=== PATIENT | female | born 1960 | race Caucasian/White ===

== ENCOUNTER → 2017-09-06 06:55 | Outpatient (CLI) | payer OTHER, SELFPAY ==
--- NOTE | 2017-09-06 07:04 | BI_ITS ---
MAMMOGRAPHY - BILATERAL SCREENING 3-D MADIHA SYNTHESIS REASON FOR EXAM: Female, 57 years old. Bilateral Screening 3-D tomosynthesis PERTINENT HISTORY: No significant family history. TECHNIQUE: 2-D mammograms and 3-D Madiha synthesis of the breast (s) were performed. CAD was performed. COMPARISON: August 14, 2016. FINDINGS: The breast composition is heterogeneously dense that can obscure small breast masses. No dense spiculated masses or suspicious microcalcifications are identified. No architectural distortion is identified. There is no skin thickening or retraction. There has been no significant change since the prior study. BI/SCREENING MAMM (CAD), BILAT IMPRESSION: No mammographic signs of malignancy. Routine yearly mammograms recommended. ASSESSMENT CATEGORY: BIRADS Category 1: Negative. A letter regarding these results will be sent to the patient by the facility within 30 days. FOLLOW UP RECOMMENDATION: Yearly follow up mammogram recommended. (A) Approximately 10% of breast cancers are not detected by mammography. A normal mammogram should not delay biopsy of a clinically suspicious abnormality. Electronically Signed: Earnest Sandoval MD at 8:16 EDT , Service support ,
== END ==
PROVIDERS: Family Provider Family Medicine; PCP Family Medicine; Visit Provider Family Medicine
DX: Z12.31 Encounter for screening mammogram for malignant neoplasm of breast (principal)
CPT/HCPCS: 77063; 77067

== ENCOUNTER → 2018-07-23 07:04 | Outpatient (CLI) | payer OTHER, SELFPAY ==
--- NOTE | 2018-07-23 09:26 | RAD_ITS ---
STUDY: X-RAY - LEFT HAND REASON FOR EXAM: Female, 58 years old. Left hand pain, mostly at the first metacarpophalangeal joint TECHNIQUE: 3 view(s) of the hand. COMPARISON: None. FINDINGS: Normal radiocarpal articulation. Normal distal radioulnar joint. Normal visualized carpal bones. Normal carpal articulations There is degenerative arthrosis of the carpometacarpal (CMC) articulation of the thumb. Normal second through fifth carpometacarpal joints. Normal metacarpi. Normal metacarpophalangeal joint of the thumb. Normal interphalangeal joint of the thumb. Normal proximal and distal phalanges of the thumb. Normal metacarpophalangeal joints of the second through fifth fingers. There is diffuse articular joint space narrowing of the proximal and distal interphalangeal joints of the second through fifth fingers, but without erosive changes or periarticular soft tissue swelling. Normal phalanges of the second through fifth fingers. The soft tissue structures are unremarkable. RAD/Hand Min 3 Views IMPRESSION: Mild degenerative changes at the PIP and DIP joints. No significant degenerative change at the first metacarpophalangeal joint. Mild degenerative change at the first carpometacarpal joint. No acute fracture. Electronically Signed: Rogelio Marti DO at 9:23 EDT Tel , Service support ,
[2018-07-23 10:12] LABS: Vitamin D,25 Hydroxy 23.3 ng/mL (29.95-100.01)
[2018-07-23 10:25] LABS: Anion Gap 7 (5-15); BUN 13 mg/dL (7-18); BUN/Creat Ratio 18.1 RATIO (10-20); Calcium,Total 8.5 mg/dL (8.5-10.1); Chloride 106 mmol/L (98-107); Cholesterol 171 mg/dL (200); Creatinine, Serum 0.72 mg/dL (0.55-1.02); EST Glomerular Filtration Rate 88 mL/min (>60); Est Glom Filt Rate - Afr Amer 107 mL/min (>60); Glucose 89 mg/dL (74-106); High Density Lipoprotein 56 mg/dL; Potassium 3.9 mmol/L (3.5-5.1); Sodium Level 144 mmol/L (136-145); Triglycerides 69 mg/dL; Very Low Density Lipoprotein 14 mg/dL (5-40)
== END ==
PROVIDERS: Family Provider Family Medicine; PCP Family Medicine; Referring Provider Family Medicine; Visit Provider Family Medicine
DX: M79.642 Pain in left hand (principal); E55.9 Vitamin D deficiency, unspecified; E03.9 Hypothyroidism, unspecified; Z13.220 Encounter for screening for lipoid disorders; Z13.1 Encounter for screening for diabetes mellitus
CPT/HCPCS: 36415; 73130; 80048; 80061; 82306; 84439; 84443

== ENCOUNTER 2018-09-04 07:05 | Outpatient (RCR) | payer OTHER, SELFPAY ==
[2018-09-04 10:51] LABS: Vitamin D,25 Hydroxy 34.5 ng/mL (29.95-100.01)
[2018-09-04 10:55] LABS: T4 Free Direct 1.28 ng/dL (0.76-1.46)
== END 2018-09-10 16:00 | disposition home or self-care (01) ==
LOC: MTLAB 07:05
PROVIDERS: Family Provider Family Medicine; PCP Family Medicine; Referring Provider Family Medicine; Visit Provider Family Medicine
DX: E03.9 Hypothyroidism, unspecified (principal); E55.9 Vitamin D deficiency, unspecified
CPT/HCPCS: 36415; 82306; 84439; 84443

== ENCOUNTER → 2018-09-04 15:42 | Outpatient (CLI) | payer OTHER, SELFPAY ==
--- NOTE | 2018-09-04 15:45 | RAD_ITS ---
STUDY: X-RAY - LEFT SHOULDER REASON FOR EXAM: Female, 58 years old. Posttraumatic pain TECHNIQUE: 4 view(s) of the shoulder. COMPARISON: None. FINDINGS: Narrowed glenohumeral articulation. Normal acromioclavicular joint. Normal acromion. Normal humeral head and visualized proximal humerus. The soft tissue structures are unremarkable. Normal visualized pulmonary apex. RAD/Shoulder min 2 Views IMPRESSION: Mild degenerative changes. No evidence for acute fracture Electronically Signed: Victorino Almanzar MD at 21:52 EDT , Service support ,
== END ==
PROVIDERS: Family Provider Family Medicine; PCP Family Medicine; Referring Provider Nurse Practitioner Family; Visit Provider Nurse Practitioner Family
DX: S49.92XA Unspecified injury of left shoulder and upper arm, initial encounter (principal)
CPT/HCPCS: 73030

== ENCOUNTER 2018-10-14 08:00 | Outpatient (RCR) | payer OTHER, SELFPAY ==
--- NOTE | 2018-09-16 07:45 | HP.PTEVAL_ITS ---
Patient's Visit Information CHRISTI VENTURA is a 58 year old F referred to Physical Therapy by LEORA Ruiz with a diagnosis of L shoulder pain. Date of Evaluation: 09/16/18 Physical Therapist: Jagjit Young DPT, OCS, CSCS - Visit Plan Frequency: 1x/Week Duration: 4-6 Weeks Plan: weekly to start possibly going to 3x /week if no improvement for. progression of home stretching , ROM and strength for capsule/RC/posture. Mobs if needed. Next week capsule stretches - Subjective Findings: L shoulder is messed up. Had frozen shoulder L 10 years ago. Recently feels like it was binding up, but then fell off the porch step in the dark missing a step and fell on L shoulder about a month ago. Prior to that sweeping motion at work was noticably catchy. Since the fall was sore for a week and then started to feel better but still a little tight in L shoulder. Reaching up is pulling underneath armpit. Reaching into the backseat of the car can be painful. Some days better than others. Sleep is OK for the most part. Basic ADLs are annoying but can do most of them. Can get dressed but L shoulder stiffness is ntoiceable and pain. 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 More so with quick reaching. Hobbies: not alot. - Pain L shoulder Pain Intensity (Out of 10): 0 Pain Intensity Range: 0, 7 Comment: 7 with reaching wrong. Tight at rest. - Objective AROM L shoulder flexion 130, abd 125, ext rotation 50 and IR PSIS, pain at end range of all of these. PROM numbers approx the same limited by pain and stiff firm endfeel in all motions. scapular ROM good B. R shoulder AROM WNL and painfree. C/S AROM WNL and painfree. Elbow and hand/ wrist ROM WNL and painfree. STrengthR shoulder 4+/5, L shoulder 4/5 and painful with flexion adn abd and IR, no pain ext rotation. Tender to palpation subscap tenon and supra tendon. - ext rotation lag, - drop arm, + HK + neer impingement on L. Posture is forward head and scap B. reflexes 2/3 B biceps and triceps. - Goals Goal 1:: Full aROM L shoulder without pain, symmetrical with R. Goal Time Frame: 4-6 Weeks Goal 2:: Patient feel back to 90% activities without shoulder limitations. Goal Time Frame: 4-6 Weeks Goal 3:: I appropr HEP to limit future problems Goal Time Frame: 4-6 Weeks Goal 4:: Less than 20% disability on quickdash Goal Time Frame: 4-6 Weeks - Rehabilitation Potential Physical Therapy Diagnosis: L shoulder pain likely adhesive capsulitis Rehabilitation Potential: Fair - Anticipated Interventions Patient/Client Instruction: Educate patient on: Condition, Plan of Care For the Purpose of:: To decrease pain, To increase ROM, To increase tolerance to activity/condition/position Therapeutic Exercise to Include: Strength training, Postural training, Flexibilty training, Passive ROM, Active ROM For the Purpose of:: To decrease pain, To increase ROM, To improve muscle performance and motor function, To increase tolerance to activity/condition/position, To improve ability of physical actions for home/community/work/leisure Manual Therapy Techniques to Include: Mobilization, Soft tissue mobilization For the Purpose of:: To increase ROM Thank you for the opportunity to evaluate your patient. For Medicare and Medicare HMO plans, please review the plan of care and approve it. It will need to be FAXED BACK to us at [phone] for Medicare purposes. For Medicare only, by signing this I certify the plan of care. Please let me know if there are questions or concerns regarding this plan of care. Physician Signature: Date:
--- NOTE | 2018-12-24 12:37 | HP.PTDCSUM ---
HP - PT D/C Summary It has been my pleasure to treat CHRISTI VENTURA under orders from LEORA Ruiz, for the diagnosis of L shoulder pain for a total of 4 visit(s). Discharge Date: 10/14/18 Please see the following information for a summary of their discharge status. - Subjective Subjective: Bands have helped a lot. Still has tightness in posterior upper arm. Pain is not present. activities are pretty normal. Sleep is OK. Only tightness is when stretching. - Pain L shoulder Pain Intensity (Out of 10): 0 - Overall Improvement % Improvement: 90 - Objective Objective/Function: 150 flexion L 155 R, abd 148 L and 155R. external rotationa nd IR symmetrical. No pain, strength at 4+/5 and symmetrical L to R. Doing well overall. - Goals Goal 1:: Full aROM L shoulder without pain, symmetrical with R. Goal Progress: Goal Met Goal 2:: Patient feel back to 90% activities without shoulder limitations. Goal Progress: Goal Met Goal 3:: I appropr HEP to limit future problems Goal Progress: Goal Met Goal 4:: Less than 20% disability on quickdash Goal Progress: Goal Met - Plan Plan: D/C , Pt to continue HEP and let doctor know if doesn't get to comfortable place with ROM. - D/C Information Discharge Comments: Doing well without pain o0r dysfunction. Slight tightness at top of ROM but doing well. Will continue HEP and let doctor know if condition worsens. If there are questions or concerns regarding this patient's physical therapy, please feel free to call me at [phone]. Thank you for the referral of this patient. Sincerely, Jagjit Young, DPT, OCS, CSCS
== END 2018-10-14 19:00 | disposition home or self-care (01) ==
LOC: PT 08:00
PROVIDERS: Family Provider Family Medicine; PCP Family Medicine; Referring Provider Nurse Practitioner Family; Visit Provider Nurse Practitioner Family
DX: M25.512 Pain in left shoulder (principal); M25.612 Stiffness of left shoulder, not elsewhere classified
CPT/HCPCS: 97110; 97161; 97530

== ENCOUNTER 2019-02-18 07:06 | Outpatient (RCR) | payer OTHER, SELFPAY ==
[2017-05-19 11:00] VITALS: BMI 23.9
[2019-02-18 10:35] LABS: Thyroid Stim Hormone (TSH) 0.13 uIU/mL (0.358-3.74)
== END 2019-02-18 18:00 | disposition home or self-care (01) ==
LOC: MTLAB 07:06
PROVIDERS: Family Provider Family Medicine; PCP Family Medicine; Referring Provider Family Medicine; Visit Provider Family Medicine
DX: E03.9 Hypothyroidism, unspecified (principal)
CPT/HCPCS: 36415; 84443

== ENCOUNTER → 2019-04-01 12:00 | Outpatient (CLI) | payer OTHER, SELFPAY ==
[2017-05-19 11:00] VITALS: BMI 23.9
[2019-04-01 14:12] LABS: T4 Free Direct 1.23 ng/dL (0.76-1.46); T4 Total, Thyroxin 12.3 ug/dL (4.8-13.9); Thyroid Stim Hormone (TSH) 0.21 uIU/mL (0.358-3.74)
== END ==
PROVIDERS: Family Provider Family Medicine; PCP Family Medicine; Referring Provider Family Medicine; Visit Provider Family Medicine
DX: E03.9 Hypothyroidism, unspecified (principal)
CPT/HCPCS: 36415; 84436; 84439; 84443

== ENCOUNTER 2019-04-21 17:00 | Outpatient (RCR) | payer OTHER, SELFPAY ==
[2017-05-19 11:00] VITALS: BMI 23.9
--- NOTE | 2019-04-15 09:07 | HP.PTEVAL ---
Patient's Visit Information CHRISTI VENTURA is a 59 year old F referred to Physical Therapy by Guero Farias MD with a diagnosis of Labbrynthitis. Date of Evaluation: 04/15/19 Physical Therapist: ARIK Farias - Visit Plan Frequency: 1x/Week Duration: 6 Weeks Plan: Re-test R Hallpike. Test CATSIB. Give vertical VOR X 1 exercises for home ( maybe be able to start in standing versus sitting). - Subjective Findings: Pt reports that one Sunday she woke up and went to get out of bed she got hit with a really hard dizzy spell to the point she had to lay back down. She took 3 days off of work cause she was so sick. If she got up slowly and in stages. She went to the Dr and they did not think it was an ear infection... and gave meclazine and a week later she felt like her ear was filling upp and they said that it was red and swollen and got a zpack for that and an anti-inflammatory that was a steroid. She started feeling a little bit better. She is back to work but can not turn head quick and has trouble with goes to look up under a vehichle she will get dizzy. She went to turn sideways to look under a car and it hit her really bad. She has tried to adapt. The episodes that she has now are not at intense unless she does something super quick. SHe rolls over in bed in stages. SHe feels the fluid moving in her ears with rolling over. The room will spin with these episodes would last about a minute and now they they are like 10 seconds. She has more symptoms rolling from L to R. She is not dizzy in sitting unless she scrolls too fast on the computer but that happened before this last episode. 10-15 years ago she started having some vertigo issues with heights. She has had some spells of ringing in her ears that don;t last long. If she looks up she for awhile (10-40 seconds).... she starts to feel dizzy and her vision starts to get out of focus. - Objective Smooth pursuit horizontal... no issues. Smooth pursuit vertical.... has a hard time staying focused especially when toward the flexion or eyes moving towards the ground. VOR X 1 vertical...slight feeling of being off. VOR X 1 horizontal no symptoms. + Hallpike to the R for torsional nystagmus that lasted approx 25 seconds... treated with R EPLY. FGA 30 - Balance Scores Functional Gait Assessment Score: 29 % Disability: 3.3400 - Goals Goal 1:: I HEP Goal Time Frame: 4-6 Weeks Goal 2:: Be able to look up under a car without getting dizzy, Goal Time Frame: 4-6 Weeks Goal 3:: Be able to complete vertical VOR X 1 60 seconds in standing without getting dizzy. Goal Time Frame: 4-6 Weeks Goal 4:: -R Hallpike for dizziness and nystagmus Goal Time Frame: 4-6 Weeks - Rehabilitation Potential Rehabilitation Potential: Good - Anticipated Interventions Patient/Client Instruction: Educate patient on: Condition, Plan of Care For the Purpose of:: To improve nutrient delivery to tissue, To improve muscle performance and motor function, To improve ability to perform ADL's, To increase tolerance to activity/condition/position, To improve performance and independence with ADL's, To improve ability of physical actions for home/community/work/leisure, To improve balance Therapeutic Exercise to Include: Strength training, Balance training, Gait and locomotor training For the Purpose of:: To improve muscle performance and motor function, To improve ability to perform ADL's, To increase tolerance to activity/condition/position, To improve performance and independence with ADL's, To decrease level of supervision to perform tasks, To improve ability of physical actions for home/community/work/leisure Manual Therapy Techniques to Include: Mobilization For the Purpose of:: To improve ability to perform ADL's Thank you for the opportunity to evaluate your patient. For Medicare and Medicare HMO plans, please review the plan of care and approve it. It will need to be FAXED BACK to us at [phone] for Medicare purposes. For Medicare only, by signing this I certify the plan of care. Please let me know if there are questions or concerns regarding this plan of care. Physician Signature: Date:
--- NOTE | 2019-04-21 17:24 | HP.PTREVAL ---
Guero Farias MD, It has been my pleasure to treat CHRISTI VENTURA over the last 2 visits for Labbrynthitis. Please see the progress note below for an update on the physical therapy plan of care! Subjective: Pt reports that she is 98% better. She reports that she is now able to look up under cars without getting dizzy. She is not as guarded either Objective/Function: Re-tested R Hallpike and was negative for dizziness and for nystagmus. Smooth pursuit horizontal X 60 seconds was normal. Smooth pursuit vertical X 30 seconds (pt had some decreased ablity to follow the object when looking down) confirmed by subjective hard time sometimes scrolling on IPAD. VOR X 1 vetical and horizontal pt had no dizziness ( on little issue with vertical and R eye jumoing off course) Plan Plan: HOld Chart X 2 wekes. Gave vertical smooth pursuits and walking with head turns for home. Pt to call in in 2 weeks to report progress and will probably be DC PT at that time Goals Goal 1:: I HEP Goal Time Frame: 4-6 Weeks Goal 2:: Be able to look up under a car without getting dizzy, Goal Time Frame: 4-6 Weeks Goal 3:: Be able to complete vertical VOR X 1 60 seconds in standing without getting dizzy. Goal Time Frame: 4-6 Weeks Goal 4:: -R Hallpike for dizziness and nystagmus Goal Time Frame: 4-6 Weeks Anticipated Interventions Patient/Client Instruction: Educate patient on: Condition, Plan of Care For the Purpose of:: To improve nutrient delivery to tissue, To improve muscle performance and motor function, To improve ability to perform ADL's, To increase tolerance to activity/condition/position, To improve performance and independence with ADL's, To improve ability of physical actions for home/community/work/leisure, To improve balance Therapeutic Exercise to Include: Strength training, Balance training, Gait and locomotor training For the Purpose of:: To improve muscle performance and motor function, To improve ability to perform ADL's, To increase tolerance to activity/condition/position, To improve performance and independence with ADL's, To decrease level of supervision to perform tasks, To improve ability of physical actions for home/community/work/leisure Manual Therapy Techniques to Include: Mobilization For the Purpose of:: To improve ability to perform ADL's Please do not hesitate to contact me at [phone] by phone or if you have questions or concerns regarding this new plan of care! Sincerely, Meredith Hart, MPT
--- NOTE | 2019-08-04 15:30 | HP.PT.NRP ---
CHRISTI VENTURA was seen in my office for initial evaluation on 04/15/19. The following Plan of Care was established for this patient: Initial Frequency: 1x/Week Initial Duration: 6 Weeks Patient/Client Instruction: Educate patient on: Condition, Plan of Care For the Purpose of:: To improve nutrient delivery to tissue, To improve muscle performance and motor function, To improve ability to perform ADL's, To increase tolerance to activity/condition/position, To improve performance and independence with ADL's, To improve ability of physical actions for home/community/work/leisure, To improve balance Therapeutic Exercise to Include: Strength training, Balance training, Gait and locomotor training For the Purpose of:: To improve muscle performance and motor function, To improve ability to perform ADL's, To increase tolerance to activity/condition/position, To improve performance and independence with ADL's, To decrease level of supervision to perform tasks, To improve ability of physical actions for home/community/work/leisure Manual Therapy Techniques to Include: Mobilization For the Purpose of:: To improve ability to perform ADL's This patient was last seen in our office 04/21/19. Pertinent comments regarding their Physical therapy will appear below: DC PT. Pt was 98% better at her last visit and was given a HEP At this point I will be discontinuing this patient from physical therapy. I would be happy to see this patient again in the future if found appropriate by the physician. Thank you! Meredith Hart, MPT
== END 2019-04-21 19:00 | disposition home or self-care (01) ==
LOC: PT 17:00
PROVIDERS: Family Provider Family Medicine; PCP Family Medicine; Referring Provider Family Medicine; Visit Provider Family Medicine
DX: H83.09 Labyrinthitis, unspecified ear (principal)
CPT/HCPCS: 97161; 97530

== ENCOUNTER → 2019-05-21 07:00 | Outpatient (CLI) | payer OTHER, SELFPAY ==
[2019-05-21 10:41] LABS: Thyroid Stim Hormone (TSH) 0.79 uIU/mL (0.358-3.74)
== END ==
PROVIDERS: Family Provider Family Medicine; PCP Family Medicine; Referring Provider Family Medicine; Visit Provider Family Medicine
DX: E03.9 Hypothyroidism, unspecified (principal)
CPT/HCPCS: 36415; 84439; 84443